=== PATIENT | female | born 1955 | race Caucasian/White ===

== ENCOUNTER → 2016-06-07 | Outpatient (CLI) | payer OTHER ==
[~2016-06-07] MED LIST: ATORVASTATIN CA20 MG PO; DITROPAN5 MG PO; TRIAMCINOLONE A15 G8; ZYRTEC PO
--- NOTE | ~2016-06-07 | CT138 ---
[facility] A Service of [facility] RADIOLOGY TEXT RESULTS PATIENT: GERONIMO STAFFORD LOCATION: [facility] : 55 UNIT #: [id number] AGE: [address]: Yuko Araujo MD SEX: F ORDER DR: [id number] [address] [address] [id number] O MR#: [id number] Acc #: [id number] NAME: GERONIMO STAFFORD : 1955 SEX: F STUDY DATE/TIME: 06/07/2016 7:54 UNIT: [facility] ROOM: STUDY DESCRIPTION: CT Lung screening initial Attending Physician: Yuko Araujo M.D. Referring Physician: Yuko Araujo M.D. Ordering Physician: Yuko Araujo M.D. Primary Care Physician: Lori Burch M.D. MEDICAL IMAGING REPORT This report is preliminary unless electronic signature is present EXAM CT lung cancer screening. INDICATION Lung cancer screening. 42 pack-year smoking history. PROCEDURE Unenhanced low-dose CT of the chest performed per lung cancer screening protocol. CTDI is 2.95 mGy. Total DLP is 115 mGy-cm. This CT exam was performed with one or more of the following radiation dose reduction techniques: automatic exposure control, adjustment of mA and/or kV according to patient size, and iterative reconstruction. COMPARISON None FINDINGS Emphysema. No suspicious pulmonary nodules. No adenopathy. No acute findings in the included upper abdomen. No aggressive appearing bone lesions. IMPRESSION 1. No suspicious pulmonary nodule. 2. Emphysema. 3. Lung-RADS category 1 negative. Per the ACR Lung-RADS recommendations, suggest patient continue with annual low-dose lung cancer screening. Dictated by... Justino Anaya M.D. [facility] A Service of [facility] RADIOLOGY TEXT RESULTS PATIENT: GERONIMO STAFFORD LOCATION: [facility] : 55 UNIT #: [id number] AGE: [address]: Yuko Araujo MD SEX: F ORDER DR: THIS IS AN ELECTRONICALLY VERIFIED REPORT Justino Anaya M.D. at 06/08/2016 7:34 AM MAYELA/mirta TD: 06/07/2016 12:55 JOB #: [id number] MEDICAL IMAGING REPORT Page 1 of 1 COPY
== END | disposition home or self-care (01) ==
LOC: CCAT 07:31
DX: Z87.891 Personal history of nicotine dependence (principal); J43.9 Emphysema, unspecified
CPT/HCPCS: G0297